=== PATIENT | female | born 1945 | race Caucasian/White ===

== ENCOUNTER 2018-01-25 13:21 | Emergency (ER) | payer MEDICARE ==
[~2018-01-25] VITALS: Ht 167.6 cm; Wt 59.0 kg
[~2018-01-25 13:21] MED LIST: HYZA50TA2 PO; LACTCAP8 PO; METF1000 PO; MONT10TA2 PO; NEXI20CA PO; REST0.05 EACH EYE; SIMV20TA PO
[2018-01-25] MEDS ORDERED: IOHEXOL 350 MG/ML 10 ML VIAL (for RAD DIAG) IVCONTRAST ONE (13:22)
[2018-01-25 14:09] VITALS: BP 128/74; PULSE 98; RESP 16; TEMP 98.7; O2SAT 95
[2018-01-25 15:49] LABS: BILIRUBIN, URINE NEG (NEG); BLOOD, URINE NEG (NEG); GLUCOSE,URINE NEG (NEG); KETONE, URINE NEG (NEG); NITRITE,URINE NEG (NEG); PH, URINE 5.5 (5.0-8.5); SQUAMOUS EPITHELIAL CELL URINE <1 /hpf (0-5); URINE COLOR LIGHT-YELLOW (YELLW/STRAW); URINE LEUKOCYTE ESTERASE NEG (NEG)
[2018-01-25 16:05] LABS: AUTOMATED NEUTROPHIL # 6.9 TH/MM3 (1.8-7.7); BASOPHIL # 0.1 TH/MM3 (0-0.2); BASOPHIL % 0.5 % (0.0-2.0); EOSINOPHIL # 0.1 TH/MM3 (0-0.4); EOSINOPHIL % 1.3 % (0.0-4.0); HEMATOCRIT 40.8 % (35.0-46.0); HEMOGLOBIN 14.2 GM/DL (11.6-15.3); LYMPH % 28.7 % (9.0-44.0); LYMPHOCYTE # 3.2 TH/MM3 (1.0-4.8); MEAN CELL VOLUME 84.3 FL (80.0-100.0); MEAN CORPUSCULAR HEMOGLOBIN 29.3 PG (27.0-34.0); MEAN CORPUSCULAR HGB CONC 34.8 % (32.0-36.0); MEAN PLATELET VOLUME 6.9 FL (7.0-11.0); MONO % 7.4 % (0.0-8.0); MONOCYTE # 0.8 TH/MM3 (0-0.9); NEUT % 62.1 % (16.0-70.0); PLATELET COUNT 330 TH/MM3 (150-450); RED BLOOD COUNT 4.84 MIL/MM3 (4.00-5.30); RED CELL DISTRIBUTION WIDTH 14.1 % (11.6-17.2)
[2018-01-25 16:10] LABS: ALBUMIN 3.7 GM/DL (3.4-5.0); AST (GOT) 13 U/L (15-37); BICARBONATE 30.1 MEQ/L (21.0-32.0); BLOOD UREA NITROGEN 7 MG/DL (7-18); CALCIUM 9.2 MG/DL (8.5-10.1); CHLORIDE 100 MEQ/L (98-107); CREATININE 0.71 MG/DL (0.50-1.00); GLOMERULAR FILTRATION RATE 81 ML/MIN (>89); GLUCOSE,RANDOM 165 MG/DL (74-106); SODIUM (NA) 137 MEQ/L (136-145)
[2018-01-25 16:13] LABS: ALKALINE PHOSPHATASE 114 U/L (45-117); ALT (GPT) 25 U/L (10-53); TOTAL BILIRUBIN ADULT 0.3 MG/DL (0.2-1.0); TOTAL PROTEIN 7.9 GM/DL (6.4-8.2)
[2018-01-25 16:33] VITALS: BP 140/74; PULSE 84; RESP 18; O2SAT 99
[2018-01-25] MEDS ORDERED: BETH25TA2 PO (16:48)
[2018-01-25] MEDS ORDERED: FIBE625T10 PO (16:48)
[2018-01-25] MEDS ORDERED: MULT-207 PO (16:48)
[2018-01-25] MEDS ORDERED: MORPHINE SULFATE 4 MG/ML INJ IV PUSH ONE (17:00)
[2018-01-25] MEDS ORDERED: ONDANSETRON HCL 4 MG/2 ML VIAL IV PUSH ONE (17:00)
[2018-01-25] MEDS ORDERED: SODIUM CHLOR 0.9% 1000 ML INJ 1,000 ML IV SCH (17:00)
[2018-01-25] MEDS ORDERED: DIATRIZOATE MEGLUM/DIATRIZOATE SOD 9 ML CUP ONE (17:47)
--- NOTE | 2018-01-25 17:50 | PD ---
HPI Chief Complaint: GI Complaint Time Seen by Provider: 16:26 Travel History International Travel<30 days: No Contact w/Intl Traveler<30days: No Traveled to known affect area: No History of Present Illness HPI 72-year-old female with a history of hypertension, diabetes mellitus, hyperlipidemia, presents today with complaints of abdominal pain. Patient states that she is also had blood in her stool over the last 2 days. She denies any fevers, chills. Patient does have a history of diverticulitis. She states the pain started in her left lower quadrant and has moved down to the area over her bladder. There is no reported diarrhea. Patient states in fact she has probably had constipation. She states she feels there is to have a bowel movement however when she goes to try, she only has mucus come out of her rectum. There is no reported nausea vomiting. There is no reported dysuria urgency or frequency. There are no other complaints at time of my examination. PFSH Past Medical History Cancer: No Cardiovascular Problems: No High Cholesterol: Yes Diabetes: Yes Patient Takes Glucophage: Yes Diminished Hearing: No Endocrine: Yes Gastrointestinal Disorders: Yes (REFLUX, BLOATING, DIVERTICULITIS) GERD: Yes Genitourinary: No Hepatitis: No Hiatal Hernia: No Hypertension: Yes Immune Disorder: No Musculoskeletal: No Neurologic: No Psychiatric: No Reproductive: No Respiratory: Yes (SLEEP APNEA) Thyroid Disease: No Menopausal: Yes Past Surgical History AICD: No Appendectomy: Yes Cardiac Surgery: No Endocrine Surgery: No Eye Surgery: Yes (cataracts) Genitourinary Surgery: Yes (HYSTERECTOMY) Hysterectomy: Yes Joint Replacement: No Oral Surgery: Yes (sinus) Pacemaker: No Thoracic Surgery: No Other Surgery: Yes (bilat hands-carpel tunnel, trigger finger bilat 3rd digits) Social History Alcohol Use: No Tobacco Use: No (quit 05/13/14- smoked 1 ppd for 50+ yrs) Substance Use: No Allergies-Medications (Allergen,Severity, Reaction): Coded Allergies: penicillin G (Unverified Allergy, Intermediate, swelling, 01/25/18) Reported Meds & Prescriptions Reported Meds & Active Scripts Active Reported Fiber (Calcium Polycarbophil) Unknown Strength Tab 1 Tab PO DAILY One Daily (Multiple Vitamin) 1 Tab 1 Tab PO DAILY Bethanechol 25 Mg Tab 25 Mg PO QID Take 30 minutes before meals and at bedtime Probiotic (Lactobacillus Acidophilus) 1 Cap Cap 1 Cap PO DAILY Nexium (Esomeprazole DR) 20 Mg Capdr 20 Mg PO DAILY Simvastatin 20 Mg Tab 20 Mg PO DAILY Metformin (Metformin HCl) 1,000 Mg Tab 1,000 Mg PO BIDPC With meals Hyzaar (Losartan-Hydrochlorothiazide) 50-12.5 Mg Tab 1 Tab PO DAILY Review of Systems Except as stated in HPI: all other systems reviewed are Neg General / Constitutional: No: Fever, Chills HENT: No: Headaches, Neck Pain Cardiovascular: No: Chest Pain or Discomfort, Palpitations Respiratory: No: Cough, Shortness of Breath Gastrointestinal: Positive: Abdominal Pain, No: Nausea, Vomiting, Diarrhea Genitourinary: No: Frequency, Dysuria, Incontinence Musculoskeletal: No: Weakness, Pain Neurologic: No: Weakness, Dizziness, Headache Physical Exam Narrative GENERAL: Well-developed well-nourished female in no acute respiratory distress. SKIN: Focused skin assessment warm/dry. HEAD: Atraumatic. Normocephalic. EYES: No scleral icterus. No injection or drainage. ENT: No nasal bleeding or discharge. Mucous membranes pink and moist. NECK: Trachea midline. Supple. CARDIOVASCULAR: Regular rate and rhythm. No murmur appreciated. RESPIRATORY: No accessory muscle use. Clear to auscultation. Breath sounds equal bilaterally. GASTROINTESTINAL: Abdomen soft, nondistended. There is tenderness to palpation in the left lower quadrant. No rebound or guarding. RECTAL EXAM: In the presence of the nurse. No masses or tenderness, stool is brown. He trace Hemoccult positive. MUSCULOSKELETAL: No obvious deformities. No clubbing. No cyanosis. No edema. NEUROLOGICAL: Awake and alert. No obvious cranial nerve deficits. Motor grossly within normal limits. Normal speech. PSYCHIATRIC: Appropriate mood and affect; insight and judgment normal. Data Data Last Documented VS Vital Signs Date Time Temp Pulse Resp B/P (MAP) Pulse Ox O2 Delivery O2 Flow Rate FiO2 01/25/18 16:38 18 01/25/18 16:33 84 140/74 (96) 99 Room Air 01/25/18 14:09 98.7 Orders Orders Complete Blood Count With Diff (01/25/18 14:59) Comprehensive Metabolic Panel (01/25/18 14:59) Urinalysis - C+S If Indicated (01/25/18 14:59) Lipase (01/25/18 14:59) Type And Screen (01/25/18 14:59) Ct Abd/Pel W Iv Contrast(Rout) (01/25/18 16:51) Sodium Chlor 0.9% 1000 Ml Inj (Ns 1000 M (01/25/18 17:00) Morphine Inj (Morphine Inj) (01/25/18 17:00) Ondansetron Inj (Zofran Inj) (01/25/18 17:00) Oral Contrast - Adult (01/25/18 17:20) Diatrizoate Liq ( Gastroview Liq) (01/25/18 17:47) Iohexol 350 Inj (Omnipaque 350 Inj) (01/25/18 13:22) Labs Laboratory Tests Test 01/25/18 15:00 White Blood Count 11.0 TH/MM3 Red Blood Count 4.84 MIL/MM3 Hemoglobin 14.2 GM/DL Hematocrit 40.8 % Mean Corpuscular Volume 84.3 FL Mean Corpuscular Hemoglobin 29.3 PG Mean Corpuscular Hemoglobin Concent 34.8 % Red Cell Distribution Width 14.1 % Platelet Count 330 TH/MM3 Mean Platelet Volume 6.9 FL Neutrophils (%) (Auto) 62.1 % Lymphocytes (%) (Auto) 28.7 % Monocytes (%) (Auto) 7.4 % Eosinophils (%) (Auto) 1.3 % Basophils (%) (Auto) 0.5 % Neutrophils # (Auto) 6.9 TH/MM3 Lymphocytes # (Auto) 3.2 TH/MM3 Monocytes # (Auto) 0.8 TH/MM3 Eosinophils # (Auto) 0.1 TH/MM3 Basophils # (Auto) 0.1 TH/MM3 CBC Comment DIFF FINAL Differential Comment Urine Color LIGHT-YELLOW Urine Turbidity CLEAR Urine pH 5.5 Urine Specific Sawyer 1.003 Urine Protein NEG mg/dL Urine Glucose (UA) NEG mg/dL Urine Ketones NEG mg/dL Urine Occult Blood NEG Urine Nitrite NEG Urine Bilirubin NEG Urine Urobilinogen LESS THAN 2.0 MG/DL Urine Leukocyte Esterase NEG Urine WBC LESS THAN 1 /hpf Urine Squamous Epithelial Cells <1 /hpf Microscopic Urinalysis Comment CULT NOT INDICATED Blood Urea Nitrogen 7 MG/DL Creatinine 0.71 MG/DL Random Glucose 165 MG/DL Total Protein 7.9 GM/DL Albumin 3.7 GM/DL Calcium Level 9.2 MG/DL Alkaline Phosphatase 114 U/L Aspartate Amino Transf (AST/SGOT) 13 U/L Alanine Aminotransferase (ALT/SGPT) 25 U/L Total Bilirubin 0.3 MG/DL Sodium Level 137 MEQ/L Potassium Level 3.4 MEQ/L Chloride Level 100 MEQ/L Carbon Dioxide Level 30.1 MEQ/L Anion Gap 7 MEQ/L Estimat Glomerular Filtration Rate 81 ML/MIN Lipase 104 U/L MDM Medical Decision Making Medical Screen Exam Complete: Yes Emergency Medical Condition: Yes Differential Diagnosis Diverticulitis versus colitis versus cystitis versus hemorrhoid pain. Narrative Course 72-year-old female presents with lower abdominal pain with associated blood in her stool. The patient has history of diverticulitis. Patient's CT scan shows biliary ductal dilatation without evidence of inflammation around the gallbladder. Patient's pain is in her lower abdominal area not her upper. The patient does have diverticulosis without obvious inflammatory changes. Given the fact that she had slight heme positive stool and history of diverticulitis and lower abdominal pain, she will be treated for diverticulitis with Levaquin 500 daily 7 days and Flagyl 500 3 times daily 7 days. She also be given a prescription for Lortab for pain. She has a GI physician. She will be told to follow-up with her GI physician. She is instructed to return if she does any worsening pain. Diagnosis Primary Impression: Abdominal pain, suspect subacute diverticulitis Additional Impressions: Nonspecific specific biliary ductal dilatation Diabetes mellitus Mild hypokalemia Heme positive stool Additional Instructions: Hold metformin 48 hours. Return if feeling worse. Follow-up with your asset liability analyst for evaluation of the heme positive stool and abdominal discomfort. Take antibiotics as prescribed. Increase potassium rich food with green leafy vegetables, bananas, citrus fruit. Med/Other Pt SpecificInfo: Prescription(s) given Scripts Hydrocodone-Acetaminophen (Hydrocodone-Acetaminophen) 5-325 mg Tab 1 TAB PO Q6H Y for PAIN for 3 Days, #12 TAB 0 Refills Prov: Jesús Blas MD 01/25/18 Metronidazole (Flagyl) 500 Mg Tab 500 MG PO TID for Infection for 7 Days, TAB 0 Refills Prov: Jesús Blas MD 01/25/18 Levofloxacin (Levofloxacin) 500 Mg Tablet 500 MG PO DAILY for Infection, #7 TAB 0 Refills Prov: Jesús Blas MD 01/25/18 Disposition: 01 DISCHARGE HOME Condition: Stable Jesús Blas MD Jan 25, 2018 17:50
--- NOTE | 2018-01-25 18:56 | RADRPT ---
EXAM DATE/TIME: 01/25/2018 18:34 [facility] COMPARISON: No previous studies available for comparison. INDICATIONS : Abdomen pain with blood in stool past week. IV CONTRAST: 82 cc Omnipaque 350 (iohexol) IV ORAL CONTRAST: Prescribed oral contrast ingested. RADIATION DOSE: 5.5 CTDIvol (mGy) MEDICAL HISTORY : Hypertension. Diabetes mellitus type 2. Gastroesophageal reflux disease. SURGICAL HISTORY : Appendectomy. Hysterectomy. ENCOUNTER: Initial ACUITY: 1 week PAIN SCALE: 5/10 LOCATION: Bilateral abdomen TECHNIQUE: Volumetric scanning of the abdomen and pelvis was performed. Using automated exposure control and ad justment of the mA and/or kV according to patient size, radiation dose was kept as low as reasonably achievable to obtain optimal diagnostic quality images. DICOM format image data is available electro nically for review and comparison. FINDINGS: Lung bases clear except for minimal scarring and dependent atelectasis. No acute findings in the liver, spleen, kidneys and pancreas. Mild bilateral adrenal hyperplasia. Com mon bile duct is mildly dilated up to about [address] findings of choledocholithiasis. Stomach is distended. No pelvic mass or free fluid. Colonic diverticulosis without diverticulitis. No acute bony abnormalit ies. CONCLUSION: 1. No bowel obstruction, free fluid or free air. Biliary ductal dilatation up to 13 mm without eviden ce for choledocholithiasis. Distended stomach. Colonic diverticulosis. Irving Mckinney MD on January 25, 2018 at 18:48 Board Certified Radiologist. This report was verified electronically.
[2018-01-25 19:17] VITALS: BP 163/72; PULSE 77; RESP 16; O2SAT 97
[2018-01-25] MEDS ORDERED: HYDR-3516 PO (19:18)
[2018-01-25] MEDS ORDERED: LEVO500T8 PO (19:18)
[2018-01-25] MEDS ORDERED: METR-1 PO (19:18)
== END 2018-01-25 19:47 | disposition home or self-care (01) ==
LOC: NEPE 13:21
DX: K57.92 Diverticulitis of intestine, part unspecified, without perforation or abscess without bleeding (principal); E87.6 Hypokalemia; E11.9 Type 2 diabetes mellitus without complications; E78.00 Pure hypercholesterolemia, unspecified; I10 Essential (primary) hypertension; Z79.84 Long term (current) use of oral hypoglycemic drugs; Z87.891 Personal history of nicotine dependence
CPT/HCPCS: 74177; 80053; 81001; 83690; 85025; 86850; 86900; 86901; 96361; 96374; 96375; 99284; J2270; J2405; J7030; Q9963; Q9967